=== PATIENT | male | born 1995 ===

== ENCOUNTER → 2018-03-20 09:27 | Outpatient (CLI) | payer OTHER, SELFPAY | DX: Z23 Encounter for immunization (principal) | CPT/HCPCS: 90471; 90686 ==

== ENCOUNTER → 2019-04-09 15:42 | Outpatient (CLI) | payer OTHER, SELFPAY | DX: Z23 Encounter for immunization (principal) | CPT/HCPCS: 90471; 90686 ==

== ENCOUNTER 2019-08-11 20:49 | Emergency (ER) | payer OTHER, SELFPAY ==
[2019-08-11 20:58] VITALS: BP 136/84; PULSE 72; RESP 18; TEMP 37; O2SAT 97; BMI 31.6
--- NOTE | 2019-08-11 21:09 | ED_ITS ---
HPI - SOB/Dyspnea General Chief Complaint: Upper Respiratory Symptoms Stated Complaint: Shortness of breath/cough Time Seen by Provider: 08/11/19 21:07 Source: patient Mode of arrival: Ambulatory Limitations: no limitations History of Present Illness HPI Narrative: This is a 24-year-old male who comes to the emergency department with complaint of cough and shortness of breath. Patient noticed a little bit of a mild cough yesterday become more persistent today. He also noted when he walks upstairs or exerts himself he feels more short of breath. He has not had any fevers. He has not had nasal congestion. He has not had any chest pain or pressure. No nausea, vomiting no other GI or urinary symptoms. Patient states he is healthy with no other medical issues. He denies any regular medications. No tobacco, occasional alcohol, no illicit. 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 Related Data Previous Rx's Medication Instructions Recorded benzonatate [Tessalon Perles] 100 mg PO TID PRN #20 cap 08/11/19 Review of Systems Review of Systems ROS Unobtainable: All systems reviewed & are unremarkable except as noted in HPI and below Patient History Social History Smoking Status: Never smoker Smoking Status: Never smoker alcohol intake frequency: 0-2 drinks per day Substance Use Type: does not use Exam Narrative Exam Narrative: GEN: well nourished, well appearing male, alert and oriented x 3, patient appears to be in no acute distress. HEENT: Atraumatic, pupils are equal round reactive to light, extraocular movements are intact, nares are clear. HEART: Regular rate and rhythm without murmur, clicks, rubs. LUNGS:Lungs clear to auscultation, no wheezes, rales, crackles, chest moves symmetrically, no tachypnea or accessory muscle use. ABD:bowel sounds normal, soft, non-tender, no guarding, rebound, rigidity, no masses noted, no hepatosplenomegaly MSCL: Non-tender, no muscle atrophy, muscles strength 5/5 upper and lower extremities, full range of motion, normal gait NEURO:CN 2-12 intact, sensation normal. SKIN: no rash, no erthyema or skin changes. Initial Vital Signs Initial Vital Signs: Vital Signs Temperature 98.6 F 08/11/19 20:58 Pulse Rate 72 08/11/19 20:58 Respiratory Rate 18 08/11/19 20:58 Blood Pressure 136/84 08/11/19 20:58 Pulse Oximetry 97 08/11/19 20:58 Course Orders Ordered: ED Orders 08/11/19 21:18 XR chest 1V Stat Vital Signs Vital signs: Vital Signs - 8 hr 08/11/19 20:58 Temperature 98.6 F Pulse Rate 72 Respiratory Rate 18 Blood Pressure 136/84 Pulse Oximetry 97 MDM - SOB/Dyspnea Imaging Data Chest x-ray: Radiologist's Impression: [address] [address] XRay Report Signed Patient: Josiah Ford#: [id number] : 1995Acct:[id number] Age/Sex: 24 / MDate of Service: 08/11/19 Loc: ED Accession Number: [id number] Procedure: XR chest 1V Ordering Provider: Stefany Marx D.O. PROCEDURE: XR CHEST 1V INDICATIONS: cough, sob, known exposures to covid at work TECHNIQUE: One view of the chest was acquired. COMPARISON: None. FINDINGS: Surgical changes and devices: None. Lungs and pleura: Lungs are clear. No pleural effusions or pneumothorax. Mediastinum: Mediastinal contours appear normal. Heart size is normal. Bones and chest wall: No suspicious bony lesions. Overlying soft tissues appear unremarkable. IMPRESSION: No acute cardiopulmonary disease. Dictated by: Roberto Carlos Maciel M.D. on 08/11/2019 at 21:33 Approved by: Roberto Carlos Maciel M.D. on 08/11/2019 at 21:33 [facility] Narrative Medical decision making narrative: Patient has as well as shortness of breath full bit of chest discomfort. 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 Chest x- ray does not show any acute findings. Vitals are stable here. I am not seeing any other infectious causes or changes at this time I would treat differently. Patient was given a script for Dangelo Ariza if he finds a would be helpful. discussed self isolation and recommendations. Discharge Plan Departure Patient Disposition: Home Clinical Impression: Cough, Suspected 2019 novel coronavirus infection Activity Restrictions/Additional Instructions: *You have been diagnosed with possible covid 19, although lab testing is pending and should result in 24-48 hours. You may take tylenol as needed for any fevers. If you test positive we recommend avoiding ibuprofen and preferentially using tylenol Use Tessalon Perles as needed for cough. *What to do: * per recommendations from the CDC and the [facility] Department of Health * stay home except to get medical care. Restrict activities outside your home, except for getting medical care. Do not go to work, school, or public areas. Avoid using public transportation, ride sharing, or taxis. * separate yourself from other people in your home. * call ahead before visiting your doctor * Wear a face mask * Cover your coughs and sneezes * Clean your hands often * Avoid sharing household items * Clean all high-touch services every day * Monitor your symptoms and seek prompt medical attention if your illness is worsening, particularly with difficulty in breathing. Discussed continuing home isolation * for individuals with symptoms who are confirmed or suspected cases of COVID-19 and are directed to care for themselves at home, discontinue home isolation under the following conditions: 1. At least 72 hours have passed since recovery, defined as resolution of fever without the use of fever reducing medications, and improvement in respiratory symptoms (cough, shortness of breath) AND, 2. At least 7 days have passed since symptoms 1st appeared Individuals with laboratory confirmed COVID-19 who have not had any symptoms may discontinue home isolation when at least 7 days have passed since the date of their 1st COVID-19 diagnostic test and have had no subsequent illness Prescriptions: New benzonatate [Tessalon Perles] 100 mg capsule 100 mg PO TID PRN (Reason: cough) Qty: 20 RF: 0
--- NOTE | 2019-08-11 21:18 | DI.RAD.S_ITS ---
PROCEDURE: XR CHEST 1V INDICATIONS: cough, sob, known exposures to covid at work TECHNIQUE: One view of the chest was acquired. COMPARISON: None. FINDINGS: Surgical changes and devices: None. Lungs and pleura: Lungs are clear. No pleural effusions or pneumothorax. Mediastinum: Mediastinal contours appear normal. Heart size is normal. Bones and chest wall: No suspicious bony lesions. Overlying soft tissues appear unremarkable. IMPRESSION: No acute cardiopulmonary disease. Dictated by: Roberto Carlos Maciel M.D. on 08/11/2019 at 21:33 Approved by: Roberto Carlos Maciel M.D. on 08/11/2019 at 21:33
[2019-08-11 21:52] VITALS: BP 126/68; PULSE 65; RESP 16; TEMP 36.8; O2SAT 96
[2019-08-13 00:51] LABS: COVID19 Sendout NOT DETECTED
== END 2019-08-11 21:52 | disposition home or self-care (01) ==
PROVIDERS: Emergency Provider Emergency Medicine
DX: R05 Cough (principal); R06.02 Shortness of breath; Z20.828 Contact with and (suspected) exposure to other viral communicable diseases; Y92.239 Unspecified place in hospital as the place of occurrence of the external cause; Y99.0 Civilian activity done for income or pay
CPT/HCPCS: 71045; 87635; 99283